=== PATIENT | female | born 2000 | race Two or more races ===

== ENCOUNTER 2024-11-13 11:08 | Emergency (ER) | payer MEDICAID ==
[~2024-11-13] VITALS: Ht 157.5 cm; Wt 43.0 kg
[2024-11-13 11:36] LABS: URINE HCG NEGATIVE (NEG)
[2024-11-13 12:13] LABS: STREP A SCREEN NEGATIVE (Neg)
[2024-11-13 12:22] VITALS: BP 101/63; PULSE 98; RESP 16; TEMP 98.3; O2SAT 99
--- NOTE | 2024-11-13 12:25 | Physician Documentation ---
History of Present Illness ~ Chief Complaint: Headache Stated Complaint: SORE THROAT Time Seen by MD: 11:39 OK to notify your PCP?: Yes Primary Medical Doctor: No PMD Source: patient Mode of Arrival: POV Exam Limitations: language barrier HPI HISTORY PER VOYZ CAD DETAILER 23-year-old female with chief complaint headache and sore throat. Reports that the headache is in her sinus area and also radiates into her teeth. She took diclofenac that she had at home which did not provide her with any relief which was why she decided to come to the ER. No fever or chills. No nausea, vomiting, cough or shortness of breath. She also c/o vaginal "spotting" over past few days that she states she gets prior to her menstrual cycle. She states this has been ongoing for some time but that it recently started up again. Last menses was over a month ago. No pelvic pain. Medication Reconciliation Allergies: Coded Allergies: No Known Allergies (Unverified , 11/13/24) Past Medical History Past Medical History: No Pertinent History Last Menstrual Period: Nov 13, 2024 Review of Systems All Other Systems at this time: Reviewed and Negative Physical Exam Vital Signs: Temperature: 99.2, Source: Temporal, Heart Rate: 111, Respiratory Rate: 15, BP: 111/68, Pulse Oximetry: 99, Weight: 43.000 Physical Exam GENERAL: Alert, no acute distress. HEENT: NCAT, EOMI, PERRL, mild posterior pharyngeal erythema, normal oropharynx, moist oral mucosa. NECK: Supple, trachea midline. No cervical LAD. CARDIAC: Regular rate and rhythm, no murmurs, rubs, or gallops. Equal distal pulses. No lower extremity edema, cap refill less than 2 seconds. RESPIRATORY: Equal breath sounds, clear to auscultation bilaterally, no respiratory distress. GASTROINTESTINAL: Non distended, soft, nontender, No guarding or rebound. MUSCULOSKELETAL: Normal range of motion, nontender, no swelling. Normal gait. NEUROLOGICAL: Awake, alert, and oriented x 3. SKIN: Warm/dry, no pallor, no rash. PSYCH: Alert and appropriate. Affect congruent with mood. Speech is clear. Good eye contact. Progress Results/Orders Results/Orders Orders - SAIDA HATHAWAY PA Cult Throat + R/O Beta Strep (11/13/24 12:13) Completed Orders - SAIDA HATHAWAY Strep A Rapid (11/13/24 11:50) Vital Signs 11/13/24 11:12 Temp 99.2 Pulse 111 Resp 15 B/P (MAP) 111/68 Pulse Ox 99 Laboratory Tests Test 11/13/24 11:22 11/13/24 11:50 Urine HCG, Qualitative Negative Group A Streptococcus Rapid Negative Medical Decision Making Differential Dx:Considerations: Include: COELHO-Cluster, COELHO-Migraine, COELHO- Hypertensive, COELHO-Muscular contraction, COELHO-Post lumbar puncture, Carbon monoxide toxicity, Close head injuyr, CVA, Fever induced, Hemorrhage-Epidural, Hemorrhage-Intracerebral, Hemorrhage-Subarachnoid, Hemorrhage-Subdural, Mass lesion, Meningitis, Post-traumtic, Pseudotumor cerebri, Sinusitis, Temporal arteritis, Trigeminal neuralgia, Other Additional Comment Patient does not have the worst headache of her life her headache is over sinuses suspect that this is a sinus infection. She also has associated sore throat strep test was negative. Departure Time of Disposition: 12:23 Disposition: HOME / SELF CARE / HOMELESS Impression: Primary Impression: Headache Qualified Codes: R51.9 - Headache, unspecified Additional Impressions: Sore throat Vaginal spotting Condition: Stable Discharge Instructions: Headache Additional Instructions: VAGINAL SPOTTING THAT HAS BEEN ONGOING PRIOR TO YOUR MENSES IS SOMETHING YOU CAN FOLLOW UP WITH YOUR PCP ABOUT YOUR TEST WAS NEGATIVE YOUR STREP TEST WAS NEGATIVE YOUR HEADACHE IS CONSISTENT WITH SINUS HEADACHE AND SORE THROAT NEGATIVE FOR S TREP. SYMPTOMS MOST CONSISTENT WITH VIRAL INFECTION WHICH YOU CAN TAKE NSAID/TYLENOL FOR, SALT WATER GARGLE, RETURN TO ER IF ANY OTHER URGENT OR EMERGENT SYMPTOMS. Referrals: NO PRIMARY CARE PROVIDER (PCP) Education Educated: Patient Educated regarding: diagnosis, treatment, need for follow up Signature Scribe Signature: X Attestation: SAIDA DELGADO Nov 13, 2024 12:25
== END 2024-11-13 12:31 | disposition home or self-care (01) ==
LOC: ER 11:10
DX: R51.9 Headache, unspecified (principal); J02.9 Acute pharyngitis, unspecified; N93.9 Abnormal uterine and vaginal bleeding, unspecified
CPT/HCPCS: 81025; 87081; 87880; 99283

== ENCOUNTER 2025-01-05 00:12 | Inpatient (IN) | payer MEDICAID ==
[~2025-01-05] VITALS: Ht 154.9 cm; Wt 46.0 kg
[2025-01-05] VITALS (23 sets, daily range): BP systolic 91–116; BP diastolic 58–76; PULSE 74–114; RESP 12–22; TEMP 97.6–98.7; O2SAT 93–99
[2025-01-05 00:43] LABS: LEUKOCYTE ESTERASE ,URINE NEGATIVE (Neg); NITRITES, URINE NEGATIVE (Neg); OCCULT BLOOD,URINE NEGATIVE (Neg)
[2025-01-05 00:44] LABS: UA COLLECTION TYPE CLN CATCH MIDSTREAM; URINE HCG NEGATIVE (NEG)
[2025-01-05] MEDS: ondansetron 4mg rapidly disintigrating tab PO ONE (00:51)
[2025-01-05 01:00] LABS: MEAN PLATELET VOLUME 7.5 FL (7.4-10.4); RED CELL DISTRIBUTION WIDTH 13.3 % (11.5-14.5)
[2025-01-05 01:07] LABS: CREATININE 0.43 MG/DL (0.40-0.90); TOTAL CARBON DIOXIDE 25.3 MMOL/L (24-32); eCRCL 144 ML/MIN; eGFR > 90 ML/MIN
[2025-01-05] MEDS ORDERED: iohexol 300mg/ml 100ml inj. ONE ×2 (02:19→12:36)
--- NOTE | 2025-01-05 03:15 | RADIOLOGY REPORT ---
Exam: CT CT ABDOMEN PELVIS W/ IV CONTRAST History: ABD PAIN COMPARISON: None Technique: Multidetector spiral CT of the abdomen and pelvis was performed from lung bases to pubic s ymphysis. Intravenous contrast was administered during this examination. Portal venous imaging was o btained. Axial, coronal and sagittal multiplanar reformats were performed by the technologist on a [employer] workstation. Radiation Dose : 1. Abdomen/Pelvis: CTDIvol 6.02 mGy, DLP 282.55 mGy*cm. CONTRAST: Type of contrast: Omnipaque 300 Contrast injected: 100 ml Findings: Lung Bases: No acute or significant lung base finding. Normal heart size. No pleural or pericardial effusion. Liver: The liver is normal in size. No focal lesions. Normal hepatic vascular enhancement. Gallbladder and Biliary Tree: Unremarkable Spleen: Unremarkable Pancreas: The pancreas is normal in appearance without focal lesions or abnormal enhancement. Adrenal Glands: Unremarkable Kidneys: No nephrolithiasis or hydronephrosis. 7 mm right superior pole renal cortical cyst. Bladder: Unremarkable Bowel: The stomach is grossly normal in appearance. Small bowel and colon are normal in caliber and d istribution. The proximal aspect of the appendix is mildly dilated and fluid-filled measuring up to 8 mm in diameter. Moderate inflammatory change adjacent to the appendix. Ascites: Small volume likely physiologic pelvic cul-de-sac free fluid. Lymphadenopathy: No mesenteric, retroperitoneal or periportal lymphadenopathy. Abdominal Wall and Mesentery: Unremarkable. Vasculature: The visualized abdominal aorta is normal in size and caliber. Abdominal and pelvic vess els demonstrate normal enhancement. Pelvic Organs: Unremarkable. Musculoskeletal: No aggressive focal bony lesions, acute fractures or dislocation. IMPRESSION: 1. Suspected early acute appendicitis. 2. Trace likely physiologic pelvic cul-de-sac free fluid. Critical Result: Acute appendicitis. Findings discussed with SURESH CHOPRA at 01/05/2025 03:10 AM, and acknowledged receipt and understandin g of the findings. Radiation optimization: All CT scans at this facility use at least one of these dose optimization te chniques: automated exposure control mA and/or kV adjustment per patient size (includes targeted exa ms where dose is matched to clinical indication) or iterative reconstruction.
[2025-01-05] MEDS: diatr meglu/diatrizoate 30ml oral sol.-(3 dose) bottle PO SCH (03:47)
[2025-01-05] MEDS ORDERED: magnesium hydroxide 30ml (MOM) UD suspension PO PRN (04:15)
[2025-01-05] MEDS ORDERED: potassium Cl 20 mEq SR tablet PO PRN ×2 (04:15)
[2025-01-05] MEDS ORDERED: magnesium sulf-water 2g/50mL 50 ML IV PRN (04:15)
[2025-01-05] MEDS ORDERED: ondansetron/PF 4mg/2ml inj IV PRN ×3 (04:15→16:15)
[2025-01-05] MEDS ORDERED: potassium Cl 40MEQ/1/2NS 520ml 520 ML IV PRN (04:15)
[2025-01-05] MEDS ORDERED: magnesium sulf-water 4G/100mL 100 ML IV PRN (04:15)
[2025-01-05] MEDS ORDERED: magnesium Cl slow-release 64mg tablet PO PRN (04:15)
[2025-01-05] MEDS ORDERED: mag hydrox/Alum hydrox/simeth 30ml oral suspension PO PRN (04:15)
--- NOTE | 2025-01-05 04:34 | HISTORY AND PHYSICAL-Residence ---
History & Physical Providers to CC Resident Creating Document: PAVANJOELIreneSUMANTH CAROL ~ History of Present Illness Primary Medical Doctor: No PMD Reason for Admit\Complaint: Acute abdominal pain History of Present Illness 24-year-old female has come to the ED with chief complaint of abdominal pain. Patient is a Montenegrin speaker, took the history and physical with the help of family medicine resident. Pain started two days ago, was initially mild and then gradually increased in intensity and became very severe today. Patient complained of pain throughout her abdomen but more prominent in the right lower quadrant, not radiating, no aggravating,relieving factors. Pain was associated with nausea and vomiting. Patient vomited 4 to 5 times since the pain started. She also complained of having loose stools yesterday, 5 times, does not report having diarrhea today. Patient has no other complaints of chest pain, palpitations, headache, burning micturition, melena. Patient denies eating outside food or getting in contact with sick people. Patient has no recent travel history. Allergies: Coded Allergies: No Known Allergies (Unverified , 11/13/24) Past Medical History Past Medical History No significant past medical history Past Surgical History Surgical History Comment No surgeries in the past Past Social History Social History Comment Patient lives with family at home Primary care doctor- Dr Soliman Does not smoke Drinks alcohol socially Illicit drug use FAMILY HISTORY Not significant ROS All Other Systems: Reviewed and Negative ROS Constitutional: No fever, chills, dizziness Eyes: No pain, erythema, discharge, blurring of vision ENT: No sore throat, epistaxis, tinnitus Cardiovascular:No chest pain, palpitations, syncope, lower extremity edema, paroxysmal nocturnal dyspnea Respiratory: No hemoptysis. Gastrointestinal: Mild pain in the right lower quadrant of the abdomen , nausea present and no vomiting. No constipation,hematemesis, melena or fresh blood Musculoskeletal:No chronmic edema. Integumentary: No change in skin, hair, nails. No swelling, bruising, abrasions Neurologic: No weakness,No headache, neck pain, numbness or tingling of the extremities, Psychiatric: No delusions, depression, loss of interest in normal activity or change in sleep pattern, hallucinations, suicidal ideations Endocrine: , no weakness. polydipsia, polyuria, change in appetite, heat or cold intolerance, sweating, dry skin Hematological: No bleeding, petechiae, bruising Allergies: No asthma or urticaria Exam Vitals: Vital Signs Date Time Temp Pulse Resp B/P (MAP) Pulse Ox O2 Delivery O2 Flow Rate FiO2 01/05/25 01:42 74 17 117/76 (90) 100 01/05/25 00:19 84.9 General: Awake , alert and oriented to time,place, person, not in acute distress HEENT: Atraumatic, normocephalic, PEERLA, anicteric sclera ; pink conjunctiva, m oist mucosa membrane Neck: Trachea midline. Supple, normal range of motion, no JVD Cardiac: S1, S2 heard, Regular rate and rhythm, without murmurs, rubs, or gallops. Chest and Respiratory: Equal breath sounds bilaterally, no tachypnea, & no rhonchi , Chest wall is symmetric and without deformity. Abdomen: Abdomen symmetric, non-distended, soft, no tenderness , no guarding or rebound tenderness,normal bowel sounds , normoactive, no hepatosplenomegaly MSK: full range of motion of all extremities. There is no joint pain or joint swelling or joint erythema. There is no muscle pain or tenderness. Extremities: warm, well-perfused, No cyanosis, clubbing or edema, 2+ pulses felt Neurological: Speech is clear, alert, and oriented x 4. No motor or sensory deficit, deep tendon reflexes normal, cerebellar intact. Cranial nerves II-XII intact. Skin: Warm and dry Psychiatry: Affect and mood are normal Diagnostic Data Last Recorded Lab Results: 01/05/25 0043 01/05/25 0043 Advance Care Planning Advanced Care plannin - 30 Minutes (Full code) Additional Plan Acute abdominal pain Possibly secondary to acute appendicitis- WBCs slightly increased-13.1 CT abdomen- Suspected early acute appendicitis. Dr Garcia, the on-call surgeon was consulted, recommended CT with contrast abdomen to be repeated. Procal, lactic acid ordered. Follow up Patient started on IV fluids NS 100ML/hr Cefazolin 1 g IV given once in ED Continuing on cefazolin q.8h IV for today Supportive care with IV morphine for pain, IV ondansetron for nausea and vomiting. Mild hypokalemia- Most likely due to vomitings and diarrhea Obtain to monitor electrolytes closely Code Status: Full code DVT Prophylaxis: SCD Nutrition: NPO after midnight PT: Ordered Disposition: Patient is being admitted to the hospital for evaluation and management of acute abdominal pain possibly secondary to acute appendicitis, consulted Dr. Young. CTA abdomen to be repeated as per the surgeon's recommendation. Follow up with the Dr. Garcia with the results of the CT. Sumanth Ibanez PGY-1 Evelin Addendum #1 Neuro: - Monitor for delirium #2 CV: - Patient hemodynamically stable, monitor vitals - Monitor for arrhythmias related to hypokalemia #3 Pulm: - Promote incentive spirometry use - Keep O2 saturation >92% #4 GI: Acute appendicitis on first scan, need repeat to confirm per surgery - Surgical consult for appendectomy - NPO status until further evaluation #5 Renal: Hypokalemia (Serum K 3.4 mEq/L) - Administer potassium replacement - Monitor electrolytes closely - Monitor renal function for ISIDRO #6 ID: Acute appendicitis with suspected or confirmed infection - Continue current antibiotics: ceftriaxone and metronidazole (Flagyl) - Monitor for signs of infection #7 Endo: - Maintain finger-stick glucose 150-180 mg/dL #8 Heme/Onc: - Monitor for bleeding and blood clots - Maintain hemoglobin >7 g/dL and platelets >10 x 10^9/L #9 PPx: - Chemical DVT prophylaxis I saw this patient and completed a full visual exam via audio-visual HIPAA compliant technology. Date of Service: Jan 05, 2025 Billing Provider: YENY DOLL MD,SUMANTH, RES Jan 05, 2025 04:34 YENY DOLL MD Jan 05, 2025 09:33
[2025-01-05 04:40] LABS: INR 1.0 INR
[2025-01-05] MEDS: normal saline 1000ml 1,000 ML IV SCH (04:51)
[2025-01-05] MEDS: ceFAZolin/D5W- 1GM premix 50 ML IV ONE (05:14)
[2025-01-05] MEDS: ceFAZolin/D5W- 1GM premix 50 ML IV STA (05:20)
[2025-01-05] MEDS ORDERED: heparin, porcine 5000 units/ml vial SQ SCH (08:00)
[2025-01-05] MEDS: K and/or MAG REPLACEMENT MC SCH (08:00)
[2025-01-05] MEDS: docusate sod 100mg capsule PO SCH (08:00)
[2025-01-05] MEDS ORDERED: ceFAZolin/D5W- 1GM premix 50 ML IV SCH (08:00)
[2025-01-05] MEDS: CefTRIAXone/D5W-Rocephin 1gm 50 ML IV SCH (10:45)
[2025-01-05] MEDS: metroNIDAZOLE-Flagyl 500mg/NS 100 ML IV SCH (10:46)
--- NOTE | 2025-01-05 13:28 | RADIOLOGY REPORT ---
Exam: CT CT ABDOMEN PELVIS W/ IV ORAL CONTRAST History: ABD PAIN, right lower quadrant pain, appendicitis COMPARISON: CT CT ABDOMEN PELVIS W/ IV CONTRAST on DOS: 01/05/25 Technique: Multidetector spiral CT of the abdomen and pelvis was performed from lung bases to pubic s ymphysis. Intravenous contrast was administered during this examination. Portal venous imaging was o btained. Axial, coronal and sagittal multiplanar reformats were performed by the technologist on a [employer] workstation. Radiation Dose : 1. Abdomen/Pelvis: CTDIvol 6.2mGy, DLP 277.3 mGy*cm. Findings: Lung Bases: No acute or significant lung base finding. Normal heart size. No pleural or pericardial effusion. Liver: The liver is normal in size. No focal lesions. Normal hepatic vascular enhancement. Gallbladder and Biliary Tree: Unremarkable Spleen: Unremarkable Pancreas: The pancreas is normal in appearance without focal lesions or abnormal enhancement. Adrenal Glands: Unremarkable Kidneys: No hydronephrosis. Bladder: Unremarkable Bowel: The stomach is grossly normal in appearance. Small bowel and colon are normal in caliber and d istribution. Dilated appendix with moderate periappendiceal inflammatory change. Appendix measures 0 .8 cm. Ascites: Absent Lymphadenopathy: No mesenteric, retroperitoneal or periportal lymphadenopathy. Abdominal Wall and Mesentery: Unremarkable. Vasculature: The visualized abdominal aorta is normal in size and caliber. Abdominal and pelvic vess els demonstrate normal enhancement. Pelvic Organs: Unremarkable Musculoskeletal: No aggressive focal bony lesions, acute fractures or dislocation. IMPRESSION: Findings are suspicious for acute appendicitis. No abscess or perforation at this time.
--- NOTE | 2025-01-05 14:05 | PROGRESS NOTE ---
Progress Note ID Providers to CC ~ Progress Note Progress Note: pt seen and examined-findings consistent with appendicitis-pt needs alia norman possible open-discussed procedure including risks/benefits/alternatives via job site supervisor JANICE SAUCEDA MD Jan 05, 2025 14:05
[2025-01-05] MEDS ORDERED: propofol inj 20 ML IV ONE (14:41)
[2025-01-05] MEDS ORDERED: rocuronium 10mg/ml inj IV ONE (14:41)
[2025-01-05] MEDS ORDERED: fentaNYL/PF 50MCG/1 ML 2ML syringe ONE (14:42)
[2025-01-05] MEDS ORDERED: midazolam 1 mg/ML 2ml injection ONE (15:03)
[2025-01-05] MEDS ORDERED: ceFOXitin 1000 MG inj ONE ×2 (15:03)
[2025-01-05] MEDS ORDERED: labetalol 20mg/4ml (5mg/ml) syringe IV PRN (15:50)
[2025-01-05] MEDS ORDERED: HYDROmorphone/PF 0.2 MG/ML SYRINGE IV PRN ×2 (15:50)
[2025-01-05] MEDS ORDERED: morphine 4 MG/ML inj SYRINge IV PRN (15:50)
[2025-01-05] MEDS ORDERED: hydrALAZINE 20mg/ml inj. IV PRN (15:50)
[2025-01-05] MEDS: ringers solution, lacted 1,000 ML IV SCH (15:50)
[2025-01-05] MEDS ORDERED: dexamethasone sod phosphate 4mg/ml inj. ONE (15:59)
[2025-01-05] MEDS ORDERED: ondansetron/PF 4mg/2ml inj ONE (15:59)
--- NOTE | 2025-01-05 16:09 | OPERATIVE REPORT ---
Operative Report Providers to CC ~ Date of Procedure: Jan 05, 2025 Pre-Operative Diagnosis: appendicitis Post-Operative Diagnosis SAME as PRE-Op Procedure Performed alia norman Surgeon: steph nichols Anesthesiologist: Lux Meléndez Type of Anesthesia: General Findings: appendicitis Estimated Blood Loss: min Specimen Removed: JANICE Higgins MD Jan 05, 2025 16:09
[2025-01-05] MEDS: acetaminophen 1,000mg/100ml IV 100 ML IV PRN (16:19)
--- NOTE | 2025-01-05 16:39 | OPERATIVE REPORT ---
DATE OF SURGERY: 01/05/2025 DICTATING PHYSICIAN: David Garcia MD PREOPERATIVE DIAGNOSIS: Appendicitis. POSTOPERATIVE DIAGNOSIS: Appendicitis. PROCEDURE PERFORMED: Robotic appendectomy. SURGEON: David Garcia MD MACHINE BUILDER: None. ANESTHESIA: General/Dr. Meléndez. DRAINS: None. INDICATIONS FOR OPERATION: A 24-year-old female with abdominal pain, found to have acute appendicitis, taken to Surgery for robotic appendectomy. INTRAOPERATIVE FINDINGS: Acute appendicitis. DESCRIPTION OF PROCEDURE: The patient was placed supine on the operating table. After the induction of general anesthesia and placement of endotracheal tube, the abdomen was prepped and draped. After timeout was performed, a supraumbilical incision was then made and a #12 port placed using open technique. Pneumoperitoneum was begun by insufflation of CO2. Additional ports were then placed in the left lower quadrant and right upper abdomen. Robot was then brought to the field. Camera port docked. Camera placed, camera targeted. Additional ports were then docked and instruments placed. Abdomen was then explored. The patient had acute appendicitis. Appendix was easily visualized in the right lower quadrant mobilized. Appendiceal mesentery was isolated, ligated, and divided. Appendiceal-cecal junction identified, isolated, ligated, stapled, and divided. When hemostasis was found to be adequate, robotic instruments were removed, robot undocked from the field. Appendix was then placed in Endobag using the laparoscope. Abdomen was copiously irrigated with large amounts of antibiotic-containing solution. Ports were then removed under laparoscopic vision with no evidence of active bleeding. Final port and camera were then withdrawn the appendix. Pneumoperitoneum was evacuated. The wounds were closed in layers. Skin was closed with subcuticular stitch. Dressing was applied, and the patient was transferred to recovery in stable condition after reversing from general anesthesia. David Garcia MD TID: [id number] RECEIPT: [id number] CARMEN/YOVerna
--- NOTE | 2025-01-05 19:56 | PROGRESS NOTE- Residence ---
Progress Note - Resident Providers to CC Resident Creating Document: SILVIA SANTIAGO RES CC: ROSE MARY DOVE MD ~ Antibiotic Timeout Antibiotic Ordered?: Yes Subjective Patient is a Albanian speaker, nurse helped with interpretation, patients reports abdominal pain 4/10 over incision area, denies nausea vomiting and passing stool or flatus however she is passing urine. Objective Vital Signs Date Time Temp Pulse Resp B/P (MAP) Pulse Ox O2 Delivery O2 Flow Rate FiO2 01/05/25 17:15 98.7 88 102/67 (79) 98 Room Air 01/05/25 17:10 14 0.0 Result Diagram: 01/05/25 0043 01/05/25 0647 General: awake, alert oriented to place, time, and person HEENT: No pallor present, no icterus, moist mucous membranes Neck: No masses and tenderness Resp: Unlabored. Lungs clear to auscultation bilaterally. Chest: Normal expansion. Cardiovascular: Regular Rate and rhythm, normal S1 and S2 without murmur, rub or gallop Abdomen: Soft and tender over incision area, incision dry and clean, no organomegaly, no guarding and rigidity, bowel sounds present Neuro: No focal weakness in the upper and lower limb muscles, power of the muscles 5/5 bilateral upper and lower extremities, normal reflexes bilaterally. Cranial nerves intact Extremities: No cyanosis,clubbing or edema Skin: Warm and Dry. No lesions Psych: Normal affect Coagulation Studies Laboratory Tests Test 01/05/25 00:43 Prothrombin Time 10.2 SECONDS (9.0-12.0) INR International Normalized Ratio 1.0 INR Coagulation Comments Plan Plan Patient presented in ER with acute abdominal pain CT was performed which was suggestive of acute appendicitis, patient admitted for appendectomy Acute abdominal pain,Secondary to Acute Appendicitis WBCs slightly increased-13.1 CT abdomen- Suspected early acute appendicitis. CT abdomen pelvis with IV contrast was suggestive of acute appendicitis Procal and lactic acid normal. Patient started on IV fluids NS 100ML/hr Cefazolin 1 g IV given once in ED. Cefazolin Dced Started on Ceftriaxone 1 gm day 1 and metrionidazole day 1 Supportive care with IV morphine for pain, IV ondansetron for nausea and vomiting. performed robotic appendectomy today. Hypokalemia Resolved Dvt Prophylaxis: SCD Nutrition: Clear Liquid Diet. Code Status: Full Code Disposition: Continue care in ortho, Diet as per surgeon. Silvia Santiago PGY1 Resident. Internal Medicine Date of Service: Jan 05, 2025 Billing Provider: ROSE MARY DOVE MD,SILVIA, RES Jan 05, 2025 19:56
[2025-01-05] MEDS: HYDROcodone/acetaminophen 5mg/325mg tablet PO PRN (21:30)
[2025-01-06] VITALS: BP 96/65; PULSE 74; RESP 15; TEMP 97.6; O2SAT 99
--- NOTE | 2025-01-06 02:35 | CONSULTATION ---
DATE OF CONSULTATION: 01/05/2025 DICTATING PHYSICIAN: David Garcia MD REASON FOR CONSULTATION: Abdominal pain. HISTORY OF PRESENT ILLNESS: The patient is a 24-year-old female with continued complaints of abdominal discomfort. CAT scan revealed evidence of acute appendicitis. Surgical evaluation is now requested for further ____. The patient complained of diffuse abdominal discomfort, which progressed over the course of the past 1-2 days. Pain associated with nausea and vomiting. Also has some diarrhea. PAST MEDICAL HISTORY: Unremarkable. PAST SURGICAL HISTORY: Unremarkable. HOME MEDICATIONS: None. ALLERGIES: None. SOCIAL HISTORY: Denies tobacco use. REVIEW OF SYSTEMS: Unremarkable. PHYSICAL EXAMINATION: GENERAL: Well-nourished female. VITAL SIGNS: Unremarkable. HEART: Regular rate and rhythm. LUNGS: Augmentin. ABDOMEN: She has right lower quadrant tenderness. EXTREMITIES: Unremarkable. NEUROLOGIC: Exam is nonfocal. LABORATORY DATA: Hemoglobin 13, hematocrit of 41, platelet count 216. Chemistries unremarkable. IMAGING STUDIES: CAT scan reveals acute appendicitis. IMPRESSION: Acute appendicitis. PLAN: * Admit. * Hydrate. * IV antibiotics. * Robotic appendectomy. David Garcia MD TID: [id number] RECEIPT: [id number] CARMEN/NICOLASA/MEDHAT
[2025-01-06 04:00] VITALS: BP 91/64; PULSE 84; RESP 18; TEMP 98.4; O2SAT 98
[2025-01-06 06:00] VITALS: BP 93/56; PULSE 98; RESP 13; TEMP 98.1; O2SAT 96
[2025-01-06 06:06] LABS: MEAN PLATELET VOLUME 8.1 FL (7.4-10.4); RED CELL DISTRIBUTION WIDTH 13.4 % (11.5-14.5)
[2025-01-06 06:37] LABS: CHOL/HDL RATIO 2.4 (0.00-4.99); CREATININE 0.38 MG/DL (0.40-0.90); LDL CHOLESTEROL 82 MG/DL (50-100); TOTAL CARBON DIOXIDE 21.7 MMOL/L (24-32); eCRCL 163 ML/MIN; eGFR > 90 ML/MIN
[2025-01-06 09:19] LABS: HBSAG SCREEN Negative (Negative); HEP B CORE AB, IGM Negative (Negative); HEP B CORE AB, TOT Negative (Negative)
[2025-01-06 10:00] VITALS: BP 95/60; PULSE 69; RESP 16; TEMP 98.5; O2SAT 98
--- NOTE | 2025-01-06 11:36 | PATHOLOGY REPORT ---
[facility] [address] [place] [address] SURGICAL PATHOLOGY REPORT CaseNumber: [id number] Surgeon:David Garcia M.D. CLINICAL INFORMATION CLINICAL INFORMATION: Not provided. DIAGNOSIS DIAGNOSIS: APPENDIX; ROBOTIC ASSISTED LAPAROSCOPIC APPENDEC - ACUTE APPENDICITIS, TRANSMURAL. MICROSCOPIC DESCRIPTION MICROSCOPIC DESCRIPTION: One slide is examined. Peformed. GROSS DESCRIPTION GROSS DESCRIPTION: Received in a container of formalin labeled with the patient's name, number, and "appendix" is a uniform caliber vermiform appendix which measures 6 cm long by 0.8 cm in diameter. T he serosa is roughened and congested. There is approximately 0.6 cm of attached periappendiceal fat. Sectioning reveals a dilated lumen containing bloody material but no fecalith. Medication Technician section s including the proximal, mid, and distal portion of the appendix are submitted as A1. The time at ich the specimen was removed was 1545. The time at which the specimen was placed in formalin was 1558 . ([facility]) Electronically signed by: Silver Lindsey M.D. 01/06/2025 11:04:00 AM
[2025-01-06] MEDS ORDERED: AMOX-580 PO (14:21)
[2025-01-06] MEDS ORDERED: PANT-47 PO (14:21)
--- NOTE | 2025-01-06 21:34 | DISCHARGE SUMMARY-Residence ---
Discharge Summary Providers to CC Resident Creating Document: SILVIA SANTIAGO RES CC: ROSE MARY DOVE MD ~ Discharge Summary Admission Diagnosis: appendicitis Hospital Course DATE OF ADMISSION: 01/05/2025 DATE OF DISCHARGE: 01/06/2025 Discharge Diagnosis\Comment: Appendicitis, Resolved Hypokalemia resolved. Operations\Procedures: Robotic appendectomy Consultants: Complications: none Condition on DC: Stable New Medications: Amox Tr/Potassium Clavulanate 875/125 MG (Augmentin 875/125 MG) 875 Mg-125 Mg Tablet 1 TAB PO BID for 3 Days, #6 TAB Pantoprazole Sodium (PROTONIX tablet) 40 Mg Tablet.dr 40 MG PO DAILY for 3 Days, #3 TAB.SR Discharge Summary: The patient, a 24-year-old female with no known comorbidities, presented to the ER with complaints of severe abdominal pain. CT scan of the abdomen and pelvis was performed, which was suggestive of acute appendicitis. Patient received analagesics for pain, She was also initiated on intravenous antibiotics, including five doses of metronidazole and two doses of ceftriaxone. Dr Ramirez was consulted and in view of her findings, she underwent a robotic appendectomy on 01/05/2025. Patient was stable for discharged. Physical Examination on Discharge General: awake, alert oriented to place, time, and person HEENT: No pallor present, no icterus, moist mucous membranes Neck: No masses and tenderness Resp: Unlabored. Lungs clear to auscultation bilaterally. Chest: Normal expansion. Cardiovascular: Regular Rate and rhythm, normal S1 and S2 without murmur, rub or gallop Abdomen: Soft and tender over incision area, incision dry and clean, no organomegaly, no guarding and rigidity, bowel sounds present Neuro: No focal weakness in the upper and lower limb muscles, power of the muscles 5/5 bilateral upper and lower extremities, normal reflexes bilaterally. Cranial nerves intact Extremities: No cyanosis,clubbing or edema Skin: Warm and Dry. No lesions Psych: Normal affect Labs on Discharge Wbc: 12 Hgb: 11.3 Hct: 34.7 Na: 139 K: 3.8 Creatinine: 0.38 BUN: [address] ScanAbdomen Pelvis/CT Findings are suspicious for acute appendicitis. No abscess or perforation at this time. Discharge Instructions FOLLOW UP WITH DR CHOI WITHIN 2 WEEKS. aVOID HEAVY WEIGHTS OR STRESSFUL ACTIVITIES. ADVANCE DIET TOLERATED. TAKE ANTIBIOTIC FOR 3 MORE DAYS AND THEN STOP. IF CONDITION WORSENS CALL 911 OR GO TO THE NEAREST ER IMMEDIATELY. appt with dr choi 01/12/25 11 am at 1555 [facility] *Problems/Diagnosis: (1) Appendicitis Status: Resolved Total Time Spent on D/C: > 30 Minutes Date of Service: Jan 06, 2025 Billing Provider: SILVIA SANTIAGO RES Problem Qualifiers (1) Appendicitis: Appendicitis type: acute appendicitis SILVIA SANTIAGO RES Jan 06, 2025 21:34
== END 2025-01-06 18:25 | disposition home or self-care (01) | DRG 234 ==
LOC: ER 00:12 → ED HOLD 03:47 → ORTHO 4S 04:59
PROVIDERS: ADMIT Internal Medicine Pulmonary Disease; ATTEND Family Medicine
PROC: 8E0W4CZ Robotic Assisted Procedure of Trunk Region, Percutaneous Endoscopic Approach (ICD-10-PCS; 2025-01-05)
PROC: BW211ZZ Computerized Tomography (CT Scan) of Abdomen and Pelvis using Low Osmolar Contrast (ICD-10-PCS; 2025-01-05)
PROC: BW211ZZ Computerized Tomography (CT Scan) of Abdomen and Pelvis using Low Osmolar Contrast (ICD-10-PCS; 2025-01-05)
PROC: 0DTJ4ZZ Resection of Appendix, Percutaneous Endoscopic Approach (ICD-10-PCS; principal; 2025-01-05 14:47)
DX: K35.80 Unspecified acute appendicitis (principal); E87.6 Hypokalemia
CPT/HCPCS: 36415; 74177; 80053; 80061; 81003; 81025; 82948; 83036; 83605; 83690; 83735; 84132; 84145; 85025; 85610; 86704; 86705; 87040; 87081; 87340; 96365; 96375; 97161; 97530; 99285; A4215; A4314; A4618; A6402; G0378; J0131; J0690; J0694; J0696; J0780; J1100; J2250; J2270; J2405; J2704; J3010; J3490; J7030; J7120; Q9963; Q9967